=== PATIENT | male | born 2005 | race Two or more races ===

== ENCOUNTER 2023-07-07 11:15 | Emergency (ER) | payer MEDICAID, OTHER ==
[~2023-07-07] VITALS: Ht 172.7 cm; Wt 67.8 kg
[2023-07-07 12:17] VITALS: BP 135/105; PULSE 97; RESP 16; TEMP 98.7; O2SAT 96
[2023-07-07] MEDS ORDERED: HYDR25CA PO (12:40)
[2023-07-07] MEDS ORDERED: METH4PAK PO (12:40)
[2023-07-07] MEDS ORDERED: methylPREDNISolone SOD SUCC 125 MG/2 ML VL IM ONE (12:45)
[2023-07-07] MEDS ORDERED: EPINEPHrine HCL 1 MG/1 ML AMP SC ONE (12:45)
[2023-07-08] MEDS ORDERED: METH4PAK PO (09:08)
== END 2023-07-07 13:09 | disposition home or self-care (01) ==
LOC: ER 11:15
DX: T78.40XA Allergy, unspecified, initial encounter (principal); X58.XXXA Exposure to other specified factors, initial encounter
CPT/HCPCS: 96372; 99284; J0171; J2930

== ENCOUNTER 2025-06-16 15:41 | Emergency (ER) | payer MEDICAID ==
[~2025-06-16] VITALS: Ht 175.3 cm; Wt 55.2 kg
[~2025-06-16 15:41] MED LIST: HYDR25CA PO; METH4PAK PO
[2025-06-16 15:45] VITALS: BP 139/105; PULSE 95; RESP 16; TEMP 97.5; O2SAT 97
--- NOTE | 2025-06-16 17:32 | DVH ---
EXAMINATION: XY RIBS BILATERAL INDICATION: pain COMPARISON: None TECHNIQUE: Frontal view of the chest and 2views of the left ribs history FINDINGS: No focal consolidation, pleural effusion or significant pneumothorax. Normal cardiomediastinal silhouette. No displaced left rib fracture. IMPRESSION: 1. No acute cardiopulmonary disease. No displaced left rib fracture.
--- NOTE | 2025-06-16 17:42 | ED.PDOC ---
Back pain HPI HPI Comments 20 y/o M, with PMHx of hidradenitis suppurativa presents to the ED for CC of rib pain. Patient states, he was showering when suddenly his left ribs protruded outward. Patient denies any trauma, injury, or fall. Chief Complaint: Rib Pain Time Seen by MD: 17:30 Reviewed Notes: Nurses Notes, Medications, Allergies Allergies: Coded Allergies: NO KNOWN ALLERGIES (Unverified , 06/16/25) Home Meds Active Scripts Methylprednisolone (Medrol Dosepak) 4 Mg Andrez, 4 MG PO UD, #21 TAB UAD Prov:VASILE MON 07/08/23 Hydroxyzine Pamoate (Vistaril) 25 Mg Cap, 1 CAP PO BID, #30 CAP 1 Refill Prov:VASILE MON 07/07/23 Information Source: Patient Mode of Arrival: Ambulatory Timing: Minutes Duration: Minutes Severity: Moderate Prehospital treatment: None Onset: Spontaneous History of: None Modifying Factors: Nothing Associated signs and symptoms: None Past Medical History PAST MEDICAL HISTORY: Denies Surgical History: Denies all surgeries Family History Family History: Reviewed,noncontributory to illness Social History Smoker: Non-Smoker Alcohol: Denies ETOH Use Drugs: Denies Drug Use Lives In: Home Constitutional: denies: chills, diaphoresis, fatigue, fever, malaise, sweats, weakness, others EENTM: denies: blurred vision, double vision, ear bleeding, ear discharge, ear drainage, ear pain, ear ringing, eye pain, eye redness, hearing loss, mouth pain, mouth swelling, nasal discharge, nose bleeding, nose congestion, nose pain, photophobia, tearing, throat pain, throat swelling, voice changes, others Respiratory: denies: cough, hemoptysis, orthopnea, SOB at rest, shortness of breath, SOB with excertion, stridor, wheezing, others Cardiovascular: denies: chest pain, dizzy spells, diaphoresis, Dyspnea on exertion, edema, irregular heart beat, left arm pain, lightheadedness, palpitations, PND, syncope, others Gastrointestinal: denies: abdomen distended, abdominal pain, blood streaked bowels, constipated, diarrhea, dysphagia, difficulty swallowing, hematemesis, melena, nausea, poor appetite, poor fluid intake, rectal bleeding, rectal pain, vomiting, others Genitourinary: denies: burning, dysuria, flank pain, frequency, hematuria, incontinence, penile discharge, penile sore, pain, testicle pain, testicle swelling, urgency, others Neurological: denies: dizziness, fainting, headache, left sided numbness, left sided weakness, numbness, paresthesia, pre-existing deficit, right sided numbness, right sided weakness, seizure, speech problems, tingling, tremors, weakness, others Musculoskeletal: reports: others (left-rib pain); denies: back pain, gout, joint pain, joint swelling, muscle pain, muscle stiffness, neck pain Integumetry: denies: bruises, change in color, change in hair/nails, dryness, laceration, lesions, lumps, rash, wounds, others Allergic/Immunocompromised: denies: Difficulty Healing, Frequent Infections, Hives, Itching, others Hematologic/Lymphatic: denies: anemia, blood clots, easy bleeding, easy bruising, swollen glands, others Endocrine: denies: excessive hunger, excessive sweating, excessive thirst, excessive urination, flushing, intolerance to cold, intolerance to heat, unexplained weight gain, unexplained weight loss, others Psychiatric: denies: anxiety, bipolar disorder, depression, hopeless, panic disorder, schizophrenia, sleepless, suicidal, others All Other Systems: Reviewed and Negative Physical Exam General Appearance: Moderate Distress HEENT: Normal ENT Inspection, Pharynx Normal, TMs Normal Neck: Full Range of Motion, Non-Tender, Normal, Normal Inspection Respiratory: Chest Non-Tender, Lungs Clear, No Accessory Muscle Use, No Respiratory Distress, Normal Breath Sounds Cardiovascular: No Edema, No JVD, No Murmur, No Gallop, Normal Peripheral Pulses, Regular Rate/Rhythm Breast Exam: Deferred Gastrointestinal: No Organomegaly, Non Tender, No Pulsatile Mass, Normal Bowel Sounds, Soft Genitalia: Deferred Pelvic: Deferred Rectal: Deferred Extremities: No calf tenderness, Normal capillary refill, Normal inspection, Normal range of motion, Non-tender, No pedal edema Musculoskeletal : Apperance: Normal Neurologic: Alert, compliance coordinator II-XII nml as Tested, No Motor Deficits, Normal Affect, Normal Mood, No Sensory Deficits Cerebellar Function: Normal Reflexes: Normal Skin: Dry, Normal Color, Warm Peripheral Pulses: 3+ Radial (R), 3+ Radial (L) Lymphatic: No Adenopathy Was a procedure done? Was a procedure done?: No Back Pain Differential Dx Differential Diagnosis: Fracture, Musculoskeletal Pain X-Ray, Labs, Meds, VS Vital Signs Date Time Temp Pulse Resp B/P (MAP) Pulse Ox O2 Delivery O2 Flow Rate FiO2 06/16/25 15:45 97.5 95 16 139/105 97 97.5 Patient alert. Complaining of rib pain. Vitals stable. Answering questions. On examination he does have tenderness in the left side of chest. X-ray does show fracture of the left rib. Was given prescription of [place]. Explained to the patient. Was told to follow up with his primary care physician. Was told to come back if there is any problem. Time of 1ST Reevaluation: 18:00 Reevaluation 1ST: Unchanged Patient Education/Counseling: Diagnosis, Treatment Family Education/Counseling: No Family Present SEPSIS Sepsis Screen Date sepsis recognized/suspect: Jun 16, 2025 Time Sepsis recognized/suspect: 1544 Recent Procedure: No On Antibiotic Therapy: No Respiratory Rate >20: No Heart Rate >90: Yes Temp<36 C (96.8 F) or >38.3 C: No SBP <90 or MAP <65 mmHG: No New Acute Mental Status Change: No Is the patient on CPAP, BIPAP,: No Physician Orders Ribs Bilateral (06/16/25 16:52) Vital Signs Date Time Temp Pulse Resp B/P (MAP) Pulse Ox O2 Delivery O2 Flow Rate FiO2 06/16/25 15:45 97.5 95 16 139/105 97 97.5 Departure 1 Departure Time of Disposition: 17:44 Impression: Primary Impression: Rib fracture Qualified Codes: S22.32XA - Fracture of one rib, left side, initial encounter for closed fracture Disposition: 01 HOME / SELF CARE / HOMELESS Condition: Good e-Prescriptions Hydrocodone-Acetaminophen (Hydrocodone Bitartrate/AC 5-325 mg) 1 Tab Tab 1 TAB PO BS for 5 Days, #5 TAB Prov: KENNY NAGY MD 06/16/25 Discharged With: Self Critical Care Note Critical Care Time?: No Stability Stability form required: No Heart Score Heart Score: Heart Score Response (Comments) Value History N/A 0 EKG N/A 0 Age N/A 0 Risk Factors N/A 0 Troponin N/A 0 Total 0 I personally scribed for KENNY NAGY MD ([email or web address]) on 06/16/25 at 17:42. Electronically submitted by Aylin Wills ([email or web address]). KENNY NAGY MD Jun 16, 2025 17:42
[2025-06-16] MEDS ORDERED: HYDR-4902 PO (17:45)
[2025-06-16] MEDS ORDERED: HYDROcodone-ACET 10/325MG TAB PO ONE (18:00)
== END 2025-06-16 17:47 | disposition home or self-care (01) ==
LOC: ER 15:41
DX: S22.32XA Fracture of one rib, left side, initial encounter for closed fracture (principal); Z88.5 Allergy status to narcotic agent; Z79.899 Other long term (current) drug therapy; X58.XXXA Exposure to other specified factors, initial encounter; Y93.89 Activity, other specified; Y92.89 Other specified places as the place of occurrence of the external cause; Y99.8 Other external cause status
CPT/HCPCS: 71111